=== PATIENT | female | born 1950 | race Caucasian/White ===

== ENCOUNTER 2024-07-29 15:30 | Inpatient (IN) | payer MEDICAID ==
[~2024-07-29] VITALS: Ht 160 cm; Wt 81.2 kg
[2024-07-29] VITALS (14 sets, daily range): BP systolic 74–106; BP diastolic 48–81; PULSE 105–112; RESP 15–23; TEMP 37.7; O2SAT 97–100
[~2024-07-29 15:30] MED LIST: ASPI-1406 MT; ATOR40TA70 PO; CHOL-36 PO; ESCI-7 PO; LOSA50TA41 PO; METF-907 PO
[2024-07-29] MEDS ORDERED: MECLIZINE 25MG TABLET PO ONE (15:45)
[2024-07-29 16:10] LABS: HEMATOCRIT. 33.9 % (36.0-48.0); HEMOGLOBIN. 11.1 g/dL (12.0-16.0); MEAN CORPUSCULAR HGB CONC 32.8 g/dL (31.0-37.0); MEAN CORPUSCULAR VOLUME 88.4 fL (81.0-99.0); MEAN PLATELET VOLUME 8.8 fl (7.4-10.4); PLATELET 254 x1000/uL (130-400); RED BLOOD CELL COUNT 3.83 mill/uL (4.2-5.4); RED CELL DISTRIBUTION WIDTH 16.6 % (11.6-14.6); WHITE BLOOD COUNT 7.8 x1000/uL (4.5-11.0)
[2024-07-29 16:11] LABS: DIFFERENTIAL COMMENT 1
[2024-07-29] MEDS: ONDANSETRON HCL 4MG/2ML INJ IV STA (16:19)
[2024-07-29 16:20] LABS: CHLORIDE 93 mEq/L (98-107); POTASSIUM 5.1 mEq/L (3.5-5.1); SODIUM 126 mEq/L (136-145)
[2024-07-29 16:21] LABS: CALCIUM 9.4 mg/dL (8.7-10.4); CARBON DIOXIDE 18 mEq/L (21-32)
[2024-07-29 16:26] LABS: TROPONIN I HIGH SENSITIVITY 13 ng/L (3.0-34); UREA NITROGEN BLOOD 33 mg/dL (9-23)
[2024-07-29] MEDS: SODIUM CHLORIDE 0.9% 1,000 ML IV ONE ×3 (16:27→18:48)
[2024-07-29 16:34] LABS: CREATININE 2.5 mg/dL (0.6-1.0); GLUCOSE 482 mg/dL (70-105)
[2024-07-29] MEDS: MECLIZINE 25MG TABLET PO NR (16:37)
[2024-07-29 17:01] LABS: ANISOCYTOSIS 1+; PLATELET ESTIMATE NORMAL
[2024-07-29] MEDS: INSULIN LISPRO 100 UNITS/ML SUBCUT STA (17:28)
[2024-07-29] MEDS: ACETAMINOPHEN 325MG TABLET PO STA (18:13)
[2024-07-29] MEDS: MORPHINE SULFATE 4 MG/ML INJ (FOR IV/IM USE) IV ONE (18:33)
[2024-07-29] MEDS: PIPERACILLIN/TAZO 3.375G/50ML 50 ML IV ONE (18:34)
[2024-07-29] MEDS: VANCOMYCIN 1G PREMIX 200 ML IV ONE (18:34)
[2024-07-29] MEDS: ACETAMINOPHEN 1000MG/100ML 100 ML IV ONE (19:13)
[2024-07-29 19:15] LABS: LACTIC ACID 7.9 mmol/L (0.4-2.0)
[2024-07-29 19:17] LABS: INFLUENZA TYPE A Presumptive Negative (Pres. Neg.)
[2024-07-29 19:18] LABS: INFLUENZA TYPE B Presumptive Negative (Pres. Neg.)
[2024-07-29] MEDS: NOREPINEPHRINE 8MG/250ML PMX 250 ML IV ONE (19:54)
[2024-07-29] MEDS ORDERED: CLONIDINE 0.1MG TABLET PO PRN (20:00)
[2024-07-29] MEDS ORDERED: DEXTROSE 50% WATER 50ML SYRINGE IV PRN (20:00)
[2024-07-29] MEDS ORDERED: GUAIFENESIN 200MG/10ML SUGAR FREE UDC PO PRN (20:00)
[2024-07-29] MEDS ORDERED: SODIUM CHLORIDE 0.9% 1,000 ML IV SCH (20:00)
[2024-07-29] MEDS ORDERED: INSULIN REGULAR (HUMULIN R) 1000UNITS/10ML VIAL IV NR (20:30)
[2024-07-29 20:53] LABS: CHLORIDE 103 mEq/L (98-107); POTASSIUM 4.5 mEq/L (3.5-5.1); SODIUM 130 mEq/L (136-145)
[2024-07-29 20:54] LABS: CALCIUM 8.6 mg/dL (8.7-10.4); CARBON DIOXIDE 16 mEq/L (21-32)
[2024-07-29 20:59] LABS: CREATININE 2.7 mg/dL (0.6-1.0); GLUCOSE 376 mg/dL (70-105)
[2024-07-29 21:00] LABS: UREA NITROGEN BLOOD 31 mg/dL (9-23)
[2024-07-29] MEDS: BLOOD SUGAR DIAGNOSTIC STRIP TEST SCH (21:00)
[2024-07-29 21:01] LABS: ALANINE AMINOTRANSFERASE 19 IU/L (10-49); ALBUMIN 3.4 g/dL (3.2-4.8); ASPARTATE AMINOTRANSFERASE 18 IU/L (<34)
[2024-07-29 21:02] LABS: BILIRUBIN DIRECT 0.2 mg/dL (<=3.0); BILIRUBIN TOTAL 0.4 mg/dL (0.1-1.0); PROTEIN TOTAL 6.1 g/dL (6.0-8.3)
[2024-07-29 21:17] LABS: INR 1.1; PROTHROMBIN TIME 11.6 sec (9.6-11.0)
[2024-07-29 21:46] LABS: PHOSPHORUS 0.9 mg/dL (2.5-4.9)
[2024-07-29] MEDS ORDERED: MAGNESIUM 2 G PREMIX 50 ML IV ONE (22:30)
[2024-07-29] MEDS ORDERED: POTASSIUM PHOSPHATE 10 MMOL in DEXT 5% WATER 246.6667 ML IV ONE (22:30)
[2024-07-29] MEDS: HYDROCORTISONE SOD SUCCINATE 100 MG/2 ML VIAL IV NR (23:18)
[2024-07-29] MEDS: SODIUM PHOSPHATE 30 MMOL in DEXT 5% WATER 500 ML IV SCH (23:22)
[2024-07-29] MEDS: AZITHROMYCIN 500MG/250ML 250 ML IV SCH (23:22)
[2024-07-29] MEDS: MAGNESIUM 4 G PREMIX 100 ML IV NR (23:22)
[2024-07-29] MEDS: INSULIN LISPRO 100 UNITS/ML SUBCUT SCH (23:31)
[2024-07-29] MEDS: INSULIN GLARGINE 100 UNITS/ML SUBCUT SCH (23:32)
[2024-07-29] MEDS: SODIUM CHLORIDE 0.45% 1,000 ML IV SCH (23:35)
[2024-07-29] MEDS: ACETAMINOPHEN 325MG TABLET PO PRN (23:35)
[2024-07-29 23:37] LABS: CLARITY URINE CLEAR (CLEAR); COLOR URINE YELLOW (YELLOW); GLUCOSE URINE 3+ (NEGATIVE); KETONES URINE NEGATIVE (NEGATIVE); LEUKOCYTE ESTERASE URINE 1+ (NEGATIVE); NITRITE URINE NEGATIVE (NEGATIVE); OCCULT BLOOD URINE NEGATIVE (NEGATIVE); PROTEIN URINE NEGATIVE (NEGATIVE); SPECIFIC GRAVITY URINE 1.017 (1.005-1.030); UROBILINOGEN URINE 0.2 E.U./dL (0.2-1.0)
[2024-07-30] VITALS (96 sets, daily range): BP systolic 31–141; BP diastolic 10–81; PULSE 72–120; RESP 0–44; TEMP 33.6–38; O2SAT 91–100
[2024-07-30 00:09] LABS: CREATINE KINASE 61 IU/L (34-145)
[2024-07-30 00:29] LABS: RBC URINE 0-2 /hpf (0-2); SQUAMOUS EPITHELIAL CELL URINE 1+ /lpf (RARE/1+)
[2024-07-30 00:30] LABS: BACTERIA URINE 2+
[2024-07-30 00:34] LABS: CHLORIDE 101 mEq/L (98-107); POTASSIUM 4.1 mEq/L (3.5-5.1); SODIUM 130 mEq/L (136-145)
[2024-07-30 00:35] LABS: CALCIUM 8.5 mg/dL (8.7-10.4); CARBON DIOXIDE 16 mEq/L (21-32)
[2024-07-30 00:40] LABS: CREATININE 3.1 mg/dL (0.6-1.0); UREA NITROGEN BLOOD 33 mg/dL (9-23)
[2024-07-30 01:12] LABS: BG BASE EXCESS -11.7 mmol/L (-2.0-3.0); BG CARBOXYHEMOGLOBIN 0.3 % (0.5-1.5); BG DEOXYHEMOGLOBIN 2.2 % (0.0-5.0); BG FRACTION INSPIRED OXYGEN 32; BG HCO3 ACT 13.3 mmol/L (21.0-28.0); BG METHEMOGLOBIN 0.1 % (0.5-1.5); BG OXYGEN SATURATION 97.8 % (94.0-98.0); BG OXYHEMOGLOBIN 97.4 % (94.0-98.0); BG PCO2 27.5 mmHg (32.0-45.0); BG PH 7.301 (7.350-7.450); BG PO2 92.9 mmHg (83.0-108.0); BG SAMPLE SITE LEFT RADIAL; BG TOTAL HEMOGLOBIN 11.6 g/dL (12.0-16.0); BG VENT MODE NASAL CANNULA
[2024-07-30 01:16] LABS: LACTIC ACID 4.8 mmol/L (0.4-2.0)
[2024-07-30 01:27] LABS: GLUCOSE 401 mg/dL (70-105)
[2024-07-30] MEDS: NOREPINEPHRINE 8MG/250ML PMX 250 ML IV PRN (02:23)
[2024-07-30 05:44] LABS: CHLORIDE 96 mEq/L (98-107); POTASSIUM 5.3 mEq/L (3.5-5.1); SODIUM 124 mEq/L (136-145)
[2024-07-30 05:45] LABS: CALCIUM 8.4 mg/dL (8.7-10.4); CARBON DIOXIDE 14 mEq/L (21-32)
[2024-07-30 05:47] LABS: HEMATOCRIT. 32.4 % (36.0-48.0); HEMOGLOBIN. 10.5 g/dL (12.0-16.0); MEAN CORPUSCULAR HEMOGLOBIN 29.1 pg (28.0-32.0); MEAN CORPUSCULAR HGB CONC 32.3 g/dL (31.0-37.0); MEAN CORPUSCULAR VOLUME 90.2 fL (81.0-99.0); MEAN PLATELET VOLUME 9.7 fl (7.4-10.4); PLATELET 228 x1000/uL (130-400); RED BLOOD CELL COUNT 3.59 mill/uL (4.2-5.4); RED CELL DISTRIBUTION WIDTH 16.7 % (11.6-14.6); WHITE BLOOD COUNT 19.1 x1000/uL (4.5-11.0)
[2024-07-30 05:50] LABS: CREATININE 3.2 mg/dL (0.6-1.0); TRIGLYCERIDE 404 mg/dL (0-150); UREA NITROGEN BLOOD 35 mg/dL (9-23)
[2024-07-30 05:51] LABS: ALBUMIN 3.4 g/dL (3.2-4.8); LACTIC ACID 7.7 mmol/L (0.4-2.0); LDL CHOLESTEROL 47 mg/dL (5-100); THYROID STIMULATING HORMONE 1.05 uIU/mL (0.55-4.78)
[2024-07-30 05:52] LABS: CHOLESTEROL 138 mg/dL (<200); CREATINE KINASE 172 IU/L (34-145); HDL CHOLESTEROL < 20 mg/dL (>65)
[2024-07-30 05:54] LABS: DIFFERENTIAL COMMENT 1
[2024-07-30 05:57] LABS: GLUCOSE 449 mg/dL (70-105)
[2024-07-30] MEDS: PANTOPRAZOLE 40MG DR TABLET PO SCH (06:06)
[2024-07-30] MEDS: PIPERACILLIN/TAZO 3.375G/50ML 50 ML IV SCH (06:07)
[2024-07-30] MEDS: SODIUM CHLORIDE 0.9% 1,000 ML IV SCH ×2 (06:34→11:55)
[2024-07-30 08:16] LABS: POTASSIUM 5.6 mEq/L (3.5-5.1)
[2024-07-30 08:17] LABS: CALCIUM 8.3 mg/dL (8.7-10.4)
[2024-07-30 08:22] LABS: CREATININE 3.4 mg/dL (0.6-1.0)
[2024-07-30] MEDS ORDERED: INSLIS SUBCUT (08:22)
[2024-07-30] MEDS ORDERED: INSU100V49 SQ (08:22)
[2024-07-30 08:46] LABS: HEPATITIS B SURFACE ANTIGEN NEGATIVE (Negative)
[2024-07-30 09:07] LABS: HEPATITIS C AB NON REACTIVE (Neg) (Negative)
[2024-07-30] MEDS: SODIUM BICARBONATE 8.4% 50MEQ/50ML SYR IV SCH ×2 (09:43→11:18)
[2024-07-30] MEDS: INSULIN GLARGINE 100 UNITS/ML SUBCUT SCH (09:49)
[2024-07-30 09:56] LABS: BG CARBOXYHEMOGLOBIN 0.8 % (0.5-1.5); BG DEOXYHEMOGLOBIN 3.2 % (0.0-5.0); BG FRACTION INSPIRED OXYGEN 32; BG HCO3 ACT 8.9 mmol/L (21.0-28.0); BG METHEMOGLOBIN 0.3 % (0.5-1.5); BG OXYGEN SATURATION 96.8 % (94.0-98.0); BG OXYHEMOGLOBIN 95.7 % (94.0-98.0); BG PCO2 22.2 mmHg (32.0-45.0); BG PH 7.221 (7.350-7.450); BG PO2 84.6 mmHg (83.0-108.0); BG SAMPLE SITE RIGHT BRACHIAL; BG TOTAL HEMOGLOBIN 11.5 g/dL (12.0-16.0); BG VENT MODE NASAL CANNULA
[2024-07-30] MEDS ORDERED: INSULIN GLARGINE 100 UNITS/ML SUBCUT SCH ×2 (10:00→22:00)
[2024-07-30] MEDS ORDERED: SODIUM POLYSTYRENE SULFONATE 15 G/60 ML BOT PO ONE (10:30)
[2024-07-30] MEDS: SODIUM BICARBONATE 100 MEQ in SODIUM CHLORIDE 0.45% 900 ML IV SCH (11:00)
[2024-07-30] MEDS ORDERED: LIDOCAINE HCL 1% 10 MG/ML 10ML VIAL ONE ×2 (11:11→13:22)
[2024-07-30] MEDS ORDERED: DEXTROSE 50% WATER 50ML SYRINGE IV PRN (11:15)
[2024-07-30] MEDS ORDERED: SODIUM PHOSPHATE 15 MMOL in SODIUM CHLORIDE 0.9% 245 ML IV PRN (11:15)
[2024-07-30] MEDS ORDERED: KCL 20MEQ/100ML PREMIX 100 ML IV PRN (11:15)
[2024-07-30] MEDS ORDERED: BLOOD SUGAR DIAGNOSTIC STRIP TEST PRN (11:15)
[2024-07-30] MEDS ORDERED: POTASSIUM CHLORIDE 40 MEQ in SODIUM CHLORIDE 0.9% 230 ML IV PRN (11:15)
[2024-07-30 11:17] LABS: ANISOCYTOSIS 1+; PLATELET ESTIMATE NORMAL
[2024-07-30] MEDS: VANCOMYCIN 750MG PMX (XELLIA) 150 ML IV SCH (11:18)
[2024-07-30] MEDS: SODIUM ZIRCONIUM CYCLOSILICATE 10GM/PACKET PO ONE (11:18)
[2024-07-30] MEDS: MAGNESIUM 4 G PREMIX 100 ML IV SCH (11:19)
[2024-07-30] MEDS ORDERED: LORAZEPAM 2MG/ML INJ IV PRN (11:45)
[2024-07-30] MEDS ORDERED: LORAZEPAM 1MG TABLET PO PRN (11:45)
[2024-07-30] MEDS ORDERED: DEXTROSE 50% WATER 50ML SYRINGE IV NR (12:15)
[2024-07-30] MEDS ORDERED: ALBUTEROL (0.083%) 2.5MG/3ML NEB HHN NR (12:15)
[2024-07-30] MEDS ORDERED: MIDAZOLAM HCL 2 MG/2 ML VIAL ONE (12:20)
[2024-07-30] MEDS: MIDAZOLAM HCL 2 MG/2 ML VIAL ONE (12:40)
[2024-07-30] MEDS: NOREPINEPHRINE 32 MG in DEXT 5% WATER 218 ML IV PRN (12:42)
[2024-07-30] MEDS: SODIUM PHOSPHATE 30 MMOL in DEXT 5% WATER 490 ML IV ONE (12:43)
[2024-07-30] MEDS: BLOOD SUGAR DIAGNOSTIC STRIP TEST SCH (12:45)
[2024-07-30] MEDS ORDERED: MIDAZOLAM HCL 2 MG/2 ML VIAL IV NR (12:45)
[2024-07-30] MEDS: SODIUM BICARBONATE 8.4% 50MEQ/50ML SYR IV NR (12:47)
[2024-07-30] MEDS: VASOPRESSIN 20 UNIT in SODIUM CHLORIDE 0.9% 99 ML IV PRN (13:00)
[2024-07-30] MEDS: MAGNESIUM 2 G PREMIX 50 ML IV PRN (13:51)
[2024-07-30] MEDS: INSULIN REGULAR 100U/100ML PMX 100 ML IV SCH (14:30)
[2024-07-30] MEDS: PROPOFOL 10MG/ML 100ML 100 ML IV PRN (15:50)
[2024-07-30 16:04] LABS: BG BASE EXCESS -11.7 mmol/L (-2.0-3.0); BG CARBOXYHEMOGLOBIN 0.4 % (0.5-1.5); BG DEOXYHEMOGLOBIN 0.3 % (0.0-5.0); BG FRACTION INSPIRED OXYGEN 100; BG METHEMOGLOBIN 0.1 % (0.5-1.5); BG OXYGEN SATURATION 99.7 % (94.0-98.0); BG OXYHEMOGLOBIN 99.2 % (94.0-98.0); BG PCO2 37.1 mmHg (32.0-45.0); BG PH 7.225 (7.350-7.450); BG PO2 195.6 mmHg (83.0-108.0); BG SAMPLE SITE ALINE; BG VENT MODE VENT - AC
[2024-07-30] MEDS: ENOXAPARIN 30MG/0.3ML SYR SUBCUT SCH (16:09)
[2024-07-30 16:26] LABS: CARBON DIOXIDE 17 mEq/L (21-32); CHLORIDE 98 mEq/L (98-107); SODIUM 131 mEq/L (136-145)
[2024-07-30 16:27] LABS: CALCIUM 7.9 mg/dL (8.7-10.4)
[2024-07-30 16:31] LABS: CREATININE 3.8 mg/dL (0.6-1.0)
[2024-07-30 16:32] LABS: UREA NITROGEN BLOOD 39 mg/dL (9-23)
[2024-07-30 16:34] LABS: PHOSPHORUS 6.3 mg/dL (2.5-4.9)
[2024-07-30 16:47] LABS: GLUCOSE 438 mg/dL (70-105)
[2024-07-30 16:59] LABS: HEPATITIS B SURFACE ANTIGEN NEGATIVE (Negative)
[2024-07-30 17:20] LABS: HEPATITIS A AB IGM NEGATIVE (Negative)
[2024-07-30 17:21] LABS: HEPATITIS B CORE AB IGM NEGATIVE (Negative); HEPATITIS C AB NON REACTIVE (Neg) (Negative)
[2024-07-30 17:53] LABS: IRON 13 ug/dL (50-170)
[2024-07-30 17:56] LABS: TOTAL IRON BINDING CAPACITY 602 ug/dl (250-425)
[2024-07-30] MEDS: INSULIN REGULAR (HUMULIN R) 1000UNITS/10ML VIAL IV NR (21:00)
[2024-07-30] MEDS: SODIUM ZIRCONIUM CYCLOSILICATE 10GM/PACKET PO NR (21:00)
[2024-07-30] MEDS: CALCIUM CHLORIDE 1GM/10ML SYR IV NR (21:00)
[2024-07-30 21:08] LABS: CARBON DIOXIDE 16 mEq/L (21-32); CHLORIDE 97 mEq/L (98-107); POTASSIUM 4.1 mEq/L (3.5-5.1); SODIUM 133 mEq/L (136-145)
[2024-07-30 21:08] LABS: BG BASE EXCESS -10.2 mmol/L (-2.0-3.0); BG CARBOXYHEMOGLOBIN 0.3 % (0.5-1.5); BG DEOXYHEMOGLOBIN 0.6 % (0.0-5.0); BG FRACTION INSPIRED OXYGEN 100; BG HCO3 ACT 14.5 mmol/L (21.0-28.0); BG OXYGEN SATURATION 99.4 % (94.0-98.0); BG OXYHEMOGLOBIN 99.1 % (94.0-98.0); BG PCO2 28.3 mmHg (32.0-45.0); BG PH 7.327 (7.350-7.450); BG PO2 157.1 mmHg (83.0-108.0); BG SAMPLE SITE ALINE; BG TOTAL HEMOGLOBIN 11.1 g/dL (12.0-16.0); BG VENT MODE VENT - AC
[2024-07-30 21:09] LABS: CALCIUM 7.4 mg/dL (8.7-10.4)
[2024-07-30 21:13] LABS: CREATININE 3.6 mg/dL (0.6-1.0); GLUCOSE 331 mg/dL (70-105)
[2024-07-30 21:14] LABS: UREA NITROGEN BLOOD 41 mg/dL (9-23)
[2024-07-30] MEDS: AZITHROMYCIN 500MG/250ML 250 ML IV SCH (21:19)
[2024-07-30] MEDS: ATORVASTATIN CALCIUM 40MG TABLET PO SCH (21:24)
[2024-07-30 21:49] LABS: PHOSPHORUS 8.3 mg/dL (2.5-4.9)
[2024-07-30 23:09] LABS: TOTAL VOLUME 24 HR 350 mL
[2024-07-30 23:16] LABS: SODIUM URINE (RAW) 36 mEq/L; SODIUM URINE 24 HR 12 mEq/24hr (40-220)
[2024-07-31] VITALS (97 sets, daily range): BP systolic 87–189; BP diastolic 36–70; PULSE 84–109; RESP 10–35; TEMP 36.114–37.7; O2SAT 92–100
[2024-07-31] MEDS: DEXT 5%/0.9% NACL 1,000 ML IV SCH ×2 (00:30→03:15)
[2024-07-31 03:57] LABS: CHLORIDE 102 mEq/L (98-107); SODIUM 136 mEq/L (136-145)
[2024-07-31 03:58] LABS: CALCIUM 7.2 mg/dL (8.7-10.4); CARBON DIOXIDE 23 mEq/L (21-32)
[2024-07-31 04:03] LABS: GLUCOSE 183 mg/dL (70-105); TRIGLYCERIDE 706 mg/dL (0-150); UREA NITROGEN BLOOD 23 mg/dL (9-23)
[2024-07-31 04:05] LABS: ALANINE AMINOTRANSFERASE 16 IU/L (10-49); ALBUMIN 2.7 g/dL (3.2-4.8); ASPARTATE AMINOTRANSFERASE 30 IU/L (<34); BILIRUBIN DIRECT 0.2 mg/dL (<=3.0); BILIRUBIN TOTAL 0.5 mg/dL (0.1-1.0); PHOSPHORUS 3.8 mg/dL (2.5-4.9)
[2024-07-31 04:08] LABS: T4 FREE 1.02 ng/dL (0.89-1.76)
[2024-07-31 04:19] LABS: CREATININE 2.2 mg/dL (0.6-1.0)
[2024-07-31 04:20] LABS: POTASSIUM 2.7 mEq/L (3.5-5.1)
[2024-07-31] MEDS ORDERED: KCL 20MEQ/100ML PREMIX 100 ML IV ONE ×2 (04:30)
[2024-07-31] MEDS: KCL 20MEQ/100ML PREMIX 100 ML IV SCH (05:15)
[2024-07-31 05:28] LABS: BASOPHILS % 0.4 % (0.0-2.0); DIFFERENTIAL COMMENT 0; EOSINOPHILS % 10.3 % (0.0-5.0); HEMATOCRIT. 27.7 % (36.0-48.0); HEMOGLOBIN. 9.6 g/dL (12.0-16.0); LYMPHOCYTES % 9.6 % (20.0-50.0); MEAN CORPUSCULAR HEMOGLOBIN 29.3 pg (28.0-32.0); MEAN CORPUSCULAR HGB CONC 34.7 g/dL (31.0-37.0); MEAN CORPUSCULAR VOLUME 84.6 fL (81.0-99.0); MONOCYTES % 4.3 % (2.0-8.0); NEUTROPHILS % 75.4 % (40.0-76.0); PLATELET 117 x1000/uL (130-400); RED BLOOD CELL COUNT 3.28 mill/uL (4.2-5.4); RED CELL DISTRIBUTION WIDTH 16.6 % (11.6-14.6); WHITE BLOOD COUNT 17.2 x1000/uL (4.5-11.0)
[2024-07-31 05:59] LABS: LACTIC ACID 4.3 mmol/L (0.4-2.0)
[2024-07-31 09:19] LABS: BG BASE EXCESS -1.8 mmol/L (-2.0-3.0); BG CARBOXYHEMOGLOBIN 0.4 % (0.5-1.5); BG DEOXYHEMOGLOBIN 2.1 % (0.0-5.0); BG FRACTION INSPIRED OXYGEN 40; BG HCO3 ACT 21.8 mmol/L (21.0-28.0); BG METHEMOGLOBIN 0.3 % (0.5-1.5); BG OXYGEN SATURATION 97.9 % (94.0-98.0); BG OXYHEMOGLOBIN 97.2 % (94.0-98.0); BG PCO2 32.7 mmHg (32.0-45.0); BG PH 7.441 (7.350-7.450); BG PO2 97.5 mmHg (83.0-108.0); BG SAMPLE SITE ALINE; BG TOTAL HEMOGLOBIN 10.9 g/dL (12.0-16.0); BG VENT MODE VENT - AC
[2024-07-31 10:42] LABS: HEMATOCRIT 26.8 % (36.0-48.0); HEMOGLOBIN 9.3 g/dL (12.0-16.0); MEAN CORPUSCULAR HEMOGLOBIN 29.6 pg (28.0-32.0); MEAN CORPUSCULAR HGB CONC 34.6 g/dL (31.0-37.0); MEAN CORPUSCULAR VOLUME 85.5 fL (81.0-99.0); PLATELET 101 x1000/uL (130-400); RED BLOOD CELL COUNT 3.13 mill/uL (4.2-5.4); RED CELL DISTRIBUTION WIDTH 16.8 % (11.6-14.6); WHITE BLOOD COUNT 15.1 x1000/uL (4.5-11.0)
[2024-07-31 10:49] LABS: CARBON DIOXIDE 23 mEq/L (21-32); CHLORIDE 101 mEq/L (98-107); POTASSIUM 3.8 mEq/L (3.5-5.1); SODIUM 135 mEq/L (136-145)
[2024-07-31 10:50] LABS: CALCIUM 6.9 mg/dL (8.7-10.4)
[2024-07-31 10:55] LABS: CREATININE 2.2 mg/dL (0.6-1.0); GLUCOSE 257 mg/dL (70-105); UREA NITROGEN BLOOD 23 mg/dL (9-23)
[2024-07-31 10:57] LABS: PHOSPHORUS 3.1 mg/dL (2.5-4.9)
[2024-07-31] MEDS: PHENYLEPHRINE 50MG/250ML PMX 250 ML IV PRN (11:31)
[2024-07-31 13:09] LABS: HEMATOCRIT 30.1 % (36.0-48.0); HEMOGLOBIN 10.5 g/dL (12.0-16.0); MEAN CORPUSCULAR HEMOGLOBIN 29.7 pg (28.0-32.0); MEAN CORPUSCULAR HGB CONC 34.8 g/dL (31.0-37.0); MEAN CORPUSCULAR VOLUME 85.3 fL (81.0-99.0); PLATELET 111 x1000/uL (130-400); RED BLOOD CELL COUNT 3.53 mill/uL (4.2-5.4); RED CELL DISTRIBUTION WIDTH 16.8 % (11.6-14.6); WHITE BLOOD COUNT 18.5 x1000/uL (4.5-11.0)
[2024-07-31 13:52] LABS: CHLORIDE 103 mEq/L (98-107); POTASSIUM 3.8 mEq/L (3.5-5.1); SODIUM 136 mEq/L (136-145)
[2024-07-31 13:53] LABS: CALCIUM 7.7 mg/dL (8.7-10.4); CARBON DIOXIDE 24 mEq/L (21-32)
[2024-07-31 13:58] LABS: GLUCOSE 227 mg/dL (70-105); UREA NITROGEN BLOOD 15 mg/dL (9-23)
[2024-07-31 14:00] LABS: PHOSPHORUS 1.6 mg/dL (2.5-4.9)
[2024-07-31 14:55] LABS: CREATININE 1.5 mg/dL (0.6-1.0)
[2024-07-31 17:13] LABS: HEMATOCRIT 30.5 % (36.0-48.0); HEMOGLOBIN 10.3 g/dL (12.0-16.0); MEAN CORPUSCULAR HEMOGLOBIN 29.1 pg (28.0-32.0); MEAN CORPUSCULAR HGB CONC 33.8 g/dL (31.0-37.0); MEAN CORPUSCULAR VOLUME 86.3 fL (81.0-99.0); RED BLOOD CELL COUNT 3.54 mill/uL (4.2-5.4); RED CELL DISTRIBUTION WIDTH 16.9 % (11.6-14.6); WHITE BLOOD COUNT 21.1 x1000/uL (4.5-11.0)
[2024-07-31 17:27] LABS: PHOSPHORUS 2.5 mg/dL (2.5-4.9)
[2024-07-31 17:30] LABS: PLATELET 99 x1000/uL (130-400)
[2024-07-31 21:50] LABS: HEMATOCRIT 26.3 % (36.0-48.0); HEMOGLOBIN 8.9 g/dL (12.0-16.0); MEAN CORPUSCULAR HEMOGLOBIN 29.1 pg (28.0-32.0); MEAN CORPUSCULAR HGB CONC 34.1 g/dL (31.0-37.0); MEAN CORPUSCULAR VOLUME 85.5 fL (81.0-99.0); PLATELET 90 x1000/uL (130-400); RED BLOOD CELL COUNT 3.07 mill/uL (4.2-5.4); RED CELL DISTRIBUTION WIDTH 16.9 % (11.6-14.6); WHITE BLOOD COUNT 18.4 x1000/uL (4.5-11.0)
[2024-07-31 22:13] LABS: CHLORIDE 107 mEq/L (98-107); POTASSIUM 3.8 mEq/L (3.5-5.1); SODIUM 136 mEq/L (136-145)
[2024-07-31 22:14] LABS: CARBON DIOXIDE 22 mEq/L (21-32)
[2024-07-31 22:15] LABS: CALCIUM 6.8 mg/dL (8.7-10.4)
[2024-07-31 22:19] LABS: CREATININE 1.8 mg/dL (0.6-1.0); GLUCOSE 303 mg/dL (70-105)
[2024-07-31 22:20] LABS: UREA NITROGEN BLOOD 19 mg/dL (9-23)
[2024-07-31 22:22] LABS: PHOSPHORUS 1.9 mg/dL (2.5-4.9)
[2024-07-31] MEDS: MIDAZOLAM HCL 2 MG/2 ML VIAL IV NR (23:32)
[2024-07-31] MEDS: FENTANYL 2500MCG/250ML PMX 250 ML IV PRN (23:39)
[2024-07-31] MEDS: INSULIN GLARGINE 100 UNITS/ML SUBCUT NR (23:50)
[2024-07-31] MEDS: INSULIN LISPRO 100 UNITS/ML SUBCUT SCH (23:51)
[2024-08-01] VITALS (98 sets, daily range): BP systolic 91–136; BP diastolic 54–77; PULSE 83–103; RESP 0–27; TEMP 36.7–37.6; O2SAT 98–100
[2024-08-01 03:40] LABS: POTASSIUM 3.6 mEq/L (3.5-5.1)
[2024-08-01 03:41] LABS: CALCIUM 6.8 mg/dL (8.7-10.4)
[2024-08-01 03:45] LABS: CREATININE 1.9 mg/dL (0.6-1.0)
[2024-08-01 04:04] LABS: BASOPHILS % 0.3 % (0.0-2.0); DIFFERENTIAL COMMENT 0; EOSINOPHILS % 1.6 % (0.0-5.0); HEMATOCRIT. 25.9 % (36.0-48.0); LYMPHOCYTES % 9.2 % (20.0-50.0); MEAN CORPUSCULAR HEMOGLOBIN 29.4 pg (28.0-32.0); MEAN CORPUSCULAR HGB CONC 34.6 g/dL (31.0-37.0); MEAN CORPUSCULAR VOLUME 84.9 fL (81.0-99.0); MEAN PLATELET VOLUME 9.4 fl (7.4-10.4); MONOCYTES % 3.7 % (2.0-8.0); NEUTROPHILS % 85.2 % (40.0-76.0); PLATELET 85 x1000/uL (130-400); RED BLOOD CELL COUNT 3.05 mill/uL (4.2-5.4); RED CELL DISTRIBUTION WIDTH 16.8 % (11.6-14.6); WHITE BLOOD COUNT 16.6 x1000/uL (4.5-11.0)
[2024-08-01] MEDS: SODIUM CHLORIDE 0.9% 1,000 ML IV SCH (04:54)
[2024-08-01] MEDS: PROPOFOL 10MG/ML 100ML 100 ML IV PRN ×2 (05:51→22:41)
[2024-08-01 06:08] LABS: TRIGLYCERIDE 874 mg/dL (0-150)
[2024-08-01 06:10] LABS: PHOSPHORUS 1.9 mg/dL (2.5-4.9)
[2024-08-01 07:45] LABS: BG BASE EXCESS -3.8 mmol/L (-2.0-3.0); BG CARBOXYHEMOGLOBIN 0.7 % (0.5-1.5); BG DEOXYHEMOGLOBIN 1.4 % (0.0-5.0); BG FRACTION INSPIRED OXYGEN 40; BG HCO3 ACT 19.3 mmol/L (21.0-28.0); BG METHEMOGLOBIN 0.1 % (0.5-1.5); BG OXYGEN SATURATION 98.6 % (94.0-98.0); BG OXYHEMOGLOBIN 97.8 % (94.0-98.0); BG PCO2 27.8 mmHg (32.0-45.0); BG PH 7.459 (7.350-7.450); BG PO2 112.6 mmHg (83.0-108.0); BG SAMPLE SITE ALINE; BG TOTAL HEMOGLOBIN 8.5 g/dL (12.0-16.0); BG VENT MODE VENT - AC
[2024-08-01] MEDS: IPRATROPIUM/ALBUTEROL 0.5-3(2.5)MG/3ML NEB HHN PRN (08:53)
[2024-08-01] MEDS: SODIUM PHOSPHATE 15 MMOL in DEXT 5% WATER 245 ML IV NR (09:54)
[2024-08-01] MEDS: INSULIN GLARGINE 100 UNITS/ML SUBCUT SCH (09:57)
[2024-08-01 10:46] LABS: AMYLASE 41 IU/L (30-118)
[2024-08-01] MEDS: BLOOD SUGAR DIAGNOSTIC STRIP TEST SCH (11:51)
[2024-08-01] MEDS: INSULIN LISPRO 100 UNITS/ML SUBCUT SCH ×2 (12:00→12:01)
[2024-08-01 12:35] LABS: POTASSIUM 3.9 mEq/L (3.5-5.1)
[2024-08-01 12:41] LABS: CREATININE 1.8 mg/dL (0.6-1.0)
[2024-08-01] MEDS: CEFTRIAXONE 1GM/50ML 50ML IV SCH (16:15)
[2024-08-01 18:52] LABS: POTASSIUM 4.2 mEq/L (3.5-5.1)
[2024-08-01 18:53] LABS: CALCIUM 7.2 mg/dL (8.7-10.4)
[2024-08-01 18:58] LABS: CREATININE 1.9 mg/dL (0.6-1.0)
[2024-08-01] MEDS: IPRATROPIUM/ALBUTEROL 0.5-3(2.5)MG/3ML NEB HHN SCH (20:33)
[2024-08-02] VITALS (102 sets, daily range): BP systolic 94–179; BP diastolic 56–96; PULSE 80–94; RESP 15–34; TEMP 36.8–37.4; O2SAT 97–100
[2024-08-02 06:05] LABS: HEMATOCRIT. 25.1 % (36.0-48.0); HEMOGLOBIN. 8.7 g/dL (12.0-16.0); MEAN CORPUSCULAR HEMOGLOBIN 29.5 pg (28.0-32.0); MEAN CORPUSCULAR HGB CONC 34.7 g/dL (31.0-37.0); MEAN CORPUSCULAR VOLUME 85.1 fL (81.0-99.0); MEAN PLATELET VOLUME 9.4 fl (7.4-10.4); PLATELET 85 x1000/uL (130-400); RED BLOOD CELL COUNT 2.95 mill/uL (4.2-5.4); RED CELL DISTRIBUTION WIDTH 16.9 % (11.6-14.6); WHITE BLOOD COUNT 12.7 x1000/uL (4.5-11.0)
[2024-08-02 06:07] LABS: CALCIUM 6.9 mg/dL (8.7-10.4); CARBON DIOXIDE 21 mEq/L (21-32); CHLORIDE 108 mEq/L (98-107); POTASSIUM 4.1 mEq/L (3.5-5.1); SODIUM 137 mEq/L (136-145)
[2024-08-02 06:12] LABS: CREATININE 1.8 mg/dL (0.6-1.0)
[2024-08-02 06:13] LABS: GLUCOSE 227 mg/dL (70-105); TRIGLYCERIDE 697 mg/dL (0-150); UREA NITROGEN BLOOD 21 mg/dL (9-23)
[2024-08-02 06:15] LABS: PHOSPHORUS 3.3 mg/dL (2.5-4.9)
[2024-08-02 06:31] LABS: DIFFERENTIAL COMMENT 1
[2024-08-02 09:04] LABS: ANISOCYTOSIS 1+; PLATELET ESTIMATE SLIGHTLY DECREASED
[2024-08-02 09:38] LABS: BG CARBOXYHEMOGLOBIN 1.4 % (0.5-1.5); BG DEOXYHEMOGLOBIN 2.1 % (0.0-5.0); BG FRACTION INSPIRED OXYGEN 40; BG HCO3 ACT 19.7 mmol/L (21.0-28.0); BG OXYGEN SATURATION 97.9 % (94.0-98.0); BG OXYHEMOGLOBIN 96.5 % (94.0-98.0); BG PCO2 35.5 mmHg (32.0-45.0); BG PH 7.362 (7.350-7.450); BG PO2 94.7 mmHg (83.0-108.0); BG SAMPLE SITE ALINE; BG TOTAL HEMOGLOBIN 11.7 g/dL (12.0-16.0); BG VENT MODE VENT - AC
[2024-08-02] MEDS: PROPOFOL 10MG/ML 100ML 100 ML IV PRN (10:13)
[2024-08-02] MEDS ORDERED: DEXTROSE 50% WATER 50ML SYRINGE IV PRN ×2 (10:45→12:45)
[2024-08-02] MEDS: BLOOD SUGAR DIAGNOSTIC STRIP TEST SCH ×2 (10:45→17:46)
[2024-08-02] MEDS: INSULIN LISPRO 100 UNITS/ML SUBCUT SCH ×2 (12:33→13:00)
[2024-08-02] MEDS: ONDANSETRON HCL 4MG/2ML INJ IV PRN (16:23)
[2024-08-02] MEDS: CEFTRIAXONE 2GM/50ML 50 ML IV SCH (16:37)
[2024-08-02] MEDS: MIDAZOLAM 100MG/100ML PMX 100 ML IV PRN (22:02)
[2024-08-03] VITALS (102 sets, daily range): BP systolic 103–166; BP diastolic 61–151; PULSE 70–86; RESP 10–30; TEMP 36.8–37.9; O2SAT 98–100
[2024-08-03 05:36] LABS: CHLORIDE 110 mEq/L (98-107); POTASSIUM 4.3 mEq/L (3.5-5.1); SODIUM 141 mEq/L (136-145)
[2024-08-03 05:37] LABS: CALCIUM 7.5 mg/dL (8.7-10.4); CARBON DIOXIDE 23 mEq/L (21-32)
[2024-08-03 05:39] LABS: BASOPHILS % 0.6 % (0.0-2.0); DIFFERENTIAL COMMENT 0; EOSINOPHILS % 2.5 % (0.0-5.0); HEMATOCRIT. 24.1 % (36.0-48.0); HEMOGLOBIN. 8.1 g/dL (12.0-16.0); LYMPHOCYTES % 10.5 % (20.0-50.0); MEAN CORPUSCULAR HEMOGLOBIN 28.5 pg (28.0-32.0); MEAN CORPUSCULAR HGB CONC 33.5 g/dL (31.0-37.0); MEAN PLATELET VOLUME 9.9 fl (7.4-10.4); MONOCYTES % 8.1 % (2.0-8.0); NEUTROPHILS % 78.3 % (40.0-76.0); PLATELET 93 x1000/uL (130-400); RED BLOOD CELL COUNT 2.83 mill/uL (4.2-5.4); RED CELL DISTRIBUTION WIDTH 17.7 % (11.6-14.6); WHITE BLOOD COUNT 12.2 x1000/uL (4.5-11.0)
[2024-08-03 05:42] LABS: CREATININE 1.9 mg/dL (0.6-1.0); GLUCOSE 190 mg/dL (70-105); TRIGLYCERIDE 250 mg/dL (0-150); UREA NITROGEN BLOOD 23 mg/dL (9-23)
[2024-08-03 05:44] LABS: PHOSPHORUS 3.2 mg/dL (2.5-4.9)
[2024-08-03 09:05] LABS: BG CARBOXYHEMOGLOBIN 0.3 % (0.5-1.5); BG DEOXYHEMOGLOBIN 0.6 % (0.0-5.0); BG FRACTION INSPIRED OXYGEN 40; BG HCO3 ACT 20.4 mmol/L (21.0-28.0); BG METHEMOGLOBIN 0.1 % (0.5-1.5); BG OXYGEN SATURATION 99.4 % (94.0-98.0); BG PCO2 34.3 mmHg (32.0-45.0); BG PH 7.393 (7.350-7.450); BG PO2 145.2 mmHg (83.0-108.0); BG SAMPLE SITE ALINE; BG TOTAL HEMOGLOBIN 8.4 g/dL (12.0-16.0); BG TOTAL RESPIRATORY RATE 17 b/min; BG VENT MODE VENT - AC
[2024-08-03] MEDS ORDERED: FENTANYL CITRATE 2,500 MCG in SODIUM CHLORIDE 0.9% 200 ML IV PRN (14:30)
[2024-08-04] VITALS (92 sets, daily range): PULSE 62–97; RESP 0–34; TEMP 36.3–37.6; O2SAT 96–100
[2024-08-04] MEDS: INSULIN LISPRO 100 UNITS/ML SUBCUT SCH (00:36)
[2024-08-04 05:51] LABS: BASOPHILS % 0.2 % (0.0-2.0); EOSINOPHILS % 3.1 % (0.0-5.0); HEMATOCRIT. 22.7 % (36.0-48.0); HEMOGLOBIN. 7.6 g/dL (12.0-16.0); LYMPHOCYTES % 10.4 % (20.0-50.0); MEAN CORPUSCULAR HEMOGLOBIN 28.4 pg (28.0-32.0); MEAN CORPUSCULAR HGB CONC 33.4 g/dL (31.0-37.0); MEAN CORPUSCULAR VOLUME 85.1 fL (81.0-99.0); MEAN PLATELET VOLUME 9.8 fl (7.4-10.4); MONOCYTES % 6.8 % (2.0-8.0); NEUTROPHILS % 79.5 % (40.0-76.0); PLATELET 107 x1000/uL (130-400); RED BLOOD CELL COUNT 2.67 mill/uL (4.2-5.4); RED CELL DISTRIBUTION WIDTH 17.5 % (11.6-14.6); WHITE BLOOD COUNT 11.9 x1000/uL (4.5-11.0)
[2024-08-04 06:16] LABS: CARBON DIOXIDE 22 mEq/L (21-32); CHLORIDE 113 mEq/L (98-107); POTASSIUM 3.9 mEq/L (3.5-5.1); SODIUM 143 mEq/L (136-145)
[2024-08-04 06:17] LABS: CALCIUM 7.3 mg/dL (8.7-10.4)
[2024-08-04 06:21] LABS: CREATININE 1.6 mg/dL (0.6-1.0)
[2024-08-04 06:22] LABS: GLUCOSE 214 mg/dL (70-105); UREA NITROGEN BLOOD 24 mg/dL (9-23)
[2024-08-04 06:24] LABS: PHOSPHORUS 3.2 mg/dL (2.5-4.9)
[2024-08-04] MEDS: DEXMEDETOMIDINE 400 MCG/100 ML 100 ML IV PRN (11:30)
[2024-08-04] MEDS: AZITHROMYCIN 500MG/250ML 250 ML IV SCH (12:06)
[2024-08-04] MEDS: MAGNESIUM 2 G PREMIX 50 ML IV NR (14:57)
[2024-08-04] MEDS ORDERED: INSULIN LISPRO (HIGH DOSE) 100 UNITS/ML SUBCUT SCH (21:30)
[2024-08-05] VITALS (87 sets, daily range): PULSE 61–83; RESP 0–30; TEMP 36.3–36.9; O2SAT 0–100
[2024-08-05 06:12] LABS: BASOPHILS % 0.5 % (0.0-2.0); EOSINOPHILS % 2.7 % (0.0-5.0); HEMATOCRIT. 23.5 % (36.0-48.0); HEMOGLOBIN. 7.9 g/dL (12.0-16.0); LYMPHOCYTES % 12.4 % (20.0-50.0); MEAN CORPUSCULAR HEMOGLOBIN 29.3 pg (28.0-32.0); MEAN CORPUSCULAR HGB CONC 33.8 g/dL (31.0-37.0); MEAN CORPUSCULAR VOLUME 86.5 fL (81.0-99.0); MEAN PLATELET VOLUME 9.9 fl (7.4-10.4); MONOCYTES % 5.6 % (2.0-8.0); NEUTROPHILS % 78.8 % (40.0-76.0); PLATELET 123 x1000/uL (130-400); RED BLOOD CELL COUNT 2.71 mill/uL (4.2-5.4); RED CELL DISTRIBUTION WIDTH 17.8 % (11.6-14.6); WHITE BLOOD COUNT 10.4 x1000/uL (4.5-11.0)
[2024-08-05 06:25] LABS: CHLORIDE 110 mEq/L (98-107); POTASSIUM 4.2 mEq/L (3.5-5.1); SODIUM 143 mEq/L (136-145)
[2024-08-05 06:26] LABS: CALCIUM 8.3 mg/dL (8.7-10.4); CARBON DIOXIDE 25 mEq/L (21-32)
[2024-08-05 06:31] LABS: CREATININE 1.7 mg/dL (0.6-1.0); GLUCOSE 128 mg/dL (70-105); UREA NITROGEN BLOOD 25 mg/dL (9-23)
[2024-08-05 06:33] LABS: ALANINE AMINOTRANSFERASE 12 IU/L (10-49); ALBUMIN 3.2 g/dL (3.2-4.8); ASPARTATE AMINOTRANSFERASE 8 IU/L (<34); BILIRUBIN DIRECT 0.1 mg/dL (<=3.0); BILIRUBIN TOTAL 0.3 mg/dL (0.1-1.0); PHOSPHORUS 3.9 mg/dL (2.5-4.9)
[2024-08-05 06:34] LABS: PROTEIN TOTAL 5.5 g/dL (6.0-8.3)
[2024-08-05 09:26] LABS: BG CARBOXYHEMOGLOBIN 0.5 % (0.5-1.5); BG DEOXYHEMOGLOBIN 1.8 % (0.0-5.0); BG FRACTION INSPIRED OXYGEN 40; BG HCO3 ACT 22.1 mmol/L (21.0-28.0); BG METHEMOGLOBIN 0.3 % (0.5-1.5); BG OXYGEN SATURATION 98.2 % (94.0-98.0); BG OXYHEMOGLOBIN 97.4 % (94.0-98.0); BG PCO2 30.1 mmHg (32.0-45.0); BG PH 7.483 (7.350-7.450); BG SAMPLE SITE ALINE; BG TOTAL HEMOGLOBIN 7.8 g/dL (12.0-16.0); BG VENT MODE VENT - AC
[2024-08-05 12:01] LABS: BG CARBOXYHEMOGLOBIN 0.3 % (0.5-1.5); BG DEOXYHEMOGLOBIN 1.8 % (0.0-5.0); BG FRACTION INSPIRED OXYGEN 40; BG HCO3 ACT 22.9 mmol/L (21.0-28.0); BG METHEMOGLOBIN 0.3 % (0.5-1.5); BG OXYGEN SATURATION 98.2 % (94.0-98.0); BG OXYHEMOGLOBIN 97.6 % (94.0-98.0); BG PCO2 30.8 mmHg (32.0-45.0); BG PO2 106.7 mmHg (83.0-108.0); BG SAMPLE SITE ALINE; BG TOTAL HEMOGLOBIN 9.1 g/dL (12.0-16.0); BG VENT MODE VENT - CPAP
[2024-08-05] MEDS: FERROUS SULFATE 325MG TABLET PO SCH (12:07)
[2024-08-05] MEDS: DIPHENHYDRAMINE 50MG/ML VIAL IV NR (14:21)
[2024-08-05] MEDS: DOCUSATE SODIUM 100MG CAPSULE PO PRN (21:50)
[2024-08-06] VITALS (57 sets, daily range): BP systolic 92–148; BP diastolic 36–103; PULSE 69–84; RESP 6–33; TEMP 36.3–36.8; O2SAT 94–100
[2024-08-06 05:59] LABS: CHLORIDE 110 mEq/L (98-107); POTASSIUM 3.5 mEq/L (3.5-5.1); SODIUM 145 mEq/L (136-145)
[2024-08-06 06:00] LABS: CARBON DIOXIDE 24 mEq/L (21-32)
[2024-08-06 06:03] LABS: BASOPHILS % 0.4 % (0.0-2.0); HEMATOCRIT. 21.7 % (36.0-48.0); HEMOGLOBIN. 7.2 g/dL (12.0-16.0); LYMPHOCYTES % 10.2 % (20.0-50.0); MEAN CORPUSCULAR HEMOGLOBIN 28.1 pg (28.0-32.0); MEAN CORPUSCULAR HGB CONC 33.1 g/dL (31.0-37.0); MEAN PLATELET VOLUME 9.8 fl (7.4-10.4); MONOCYTES % 5.1 % (2.0-8.0); NEUTROPHILS % 82.3 % (40.0-76.0); PLATELET 163 x1000/uL (130-400); RED BLOOD CELL COUNT 2.55 mill/uL (4.2-5.4); RED CELL DISTRIBUTION WIDTH 17.7 % (11.6-14.6); WHITE BLOOD COUNT 11.8 x1000/uL (4.5-11.0)
[2024-08-06 06:05] LABS: CREATININE 1.5 mg/dL (0.6-1.0); GLUCOSE 75 mg/dL (70-105)
[2024-08-06 06:06] LABS: UREA NITROGEN BLOOD 25 mg/dL (9-23)
[2024-08-06 06:08] LABS: PHOSPHORUS 4.1 mg/dL (2.5-4.9)
[2024-08-06] MEDS: TRAMADOL 50MG TABLET PO NR (22:23)
[2024-08-07 04:00] VITALS: BP 124/61; PULSE 73; RESP 18; TEMP 36.4; O2SAT 100
[2024-08-07 08:00] VITALS: BP 116/54; PULSE 78; RESP 18; TEMP 37; O2SAT 98
[2024-08-07 09:09] LABS: BASOPHILS % 0.4 % (0.0-2.0); EOSINOPHILS % 2.2 % (0.0-5.0); HEMATOCRIT. 24.2 % (36.0-48.0); HEMOGLOBIN. 8.1 g/dL (12.0-16.0); MEAN CORPUSCULAR HEMOGLOBIN 29.3 pg (28.0-32.0); MEAN CORPUSCULAR HGB CONC 33.6 g/dL (31.0-37.0); MEAN CORPUSCULAR VOLUME 87.4 fL (81.0-99.0); MEAN PLATELET VOLUME 9.9 fl (7.4-10.4); MONOCYTES % 4.7 % (2.0-8.0); NEUTROPHILS % 82.7 % (40.0-76.0); PLATELET 202 x1000/uL (130-400); RED BLOOD CELL COUNT 2.77 mill/uL (4.2-5.4); RED CELL DISTRIBUTION WIDTH 18.1 % (11.6-14.6); WHITE BLOOD COUNT 9.8 x1000/uL (4.5-11.0)
[2024-08-07 09:27] LABS: CHLORIDE 108 mEq/L (98-107); POTASSIUM 4.1 mEq/L (3.5-5.1); SODIUM 142 mEq/L (136-145)
[2024-08-07 09:28] LABS: CARBON DIOXIDE 25 mEq/L (21-32)
[2024-08-07 09:29] LABS: CALCIUM 8.1 mg/dL (8.7-10.4)
[2024-08-07 09:33] LABS: CREATININE 1.6 mg/dL (0.6-1.0); GLUCOSE 122 mg/dL (70-105)
[2024-08-07 09:34] LABS: UREA NITROGEN BLOOD 25 mg/dL (9-23)
[2024-08-07 09:36] LABS: PHOSPHORUS 4.1 mg/dL (2.5-4.9)
[2024-08-07] MEDS: INSULIN GLARGINE 100 UNITS/ML SUBCUT SCH (10:00)
[2024-08-07 12:00] VITALS: BP 111/54; PULSE 78; RESP 17; TEMP 38.3; O2SAT 96
[2024-08-07 16:00] VITALS: BP 117/57; PULSE 77; RESP 17; TEMP 36.6; O2SAT 96
[2024-08-07 20:00] VITALS: BP 131/61; PULSE 79; RESP 19; TEMP 36.4; O2SAT 97
[2024-08-07] MEDS ORDERED: MIRA50TA PO (20:52)
[2024-08-07] MEDS ORDERED: LOSA25TA26 PO (20:52)
[2024-08-07] MEDS ORDERED: GABA-1180 PO (20:52)
[2024-08-07] MEDS ORDERED: NYST15CR31 TP (20:52)
[2024-08-07] MEDS ORDERED: PREMV VG (20:52)
[2024-08-07] MEDS ORDERED: PSYL284P7 PO (20:52)
[2024-08-07] MEDS: GABAPENTIN 300MG CAPSULE PO SCH (21:01)
[2024-08-07] MEDS: BLOOD SUGAR DIAGNOSTIC STRIP TEST SCH (23:00)
[2024-08-07] MEDS: INSULIN LISPRO 100 UNITS/ML SUBCUT SCH (23:00)
[2024-08-07 23:58] VITALS: BP 96/60; PULSE 74; RESP 19; TEMP 36.3; O2SAT 96
[2024-08-08 03:57] VITALS: BP 125/51; PULSE 84; RESP 20; TEMP 36.4; O2SAT 97
[2024-08-08 07:23] LABS: BASOPHILS % 0.7 % (0.0-2.0); EOSINOPHILS % 1.4 % (0.0-5.0); HEMATOCRIT. 25.1 % (36.0-48.0); HEMOGLOBIN. 8.2 g/dL (12.0-16.0); LYMPHOCYTES % 9.3 % (20.0-50.0); MEAN CORPUSCULAR HEMOGLOBIN 28.6 pg (28.0-32.0); MEAN CORPUSCULAR HGB CONC 32.8 g/dL (31.0-37.0); MEAN CORPUSCULAR VOLUME 87.2 fL (81.0-99.0); MEAN PLATELET VOLUME 9.9 fl (7.4-10.4); MONOCYTES % 3.7 % (2.0-8.0); NEUTROPHILS % 84.9 % (40.0-76.0); PLATELET 259 x1000/uL (130-400); RED BLOOD CELL COUNT 2.88 mill/uL (4.2-5.4); RED CELL DISTRIBUTION WIDTH 18.1 % (11.6-14.6)
[2024-08-08 07:41] LABS: CARBON DIOXIDE 25 mEq/L (21-32); CHLORIDE 109 mEq/L (98-107); POTASSIUM 4.3 mEq/L (3.5-5.1); SODIUM 144 mEq/L (136-145)
[2024-08-08 07:43] LABS: CALCIUM 8.4 mg/dL (8.7-10.4)
[2024-08-08 07:45] LABS: CREATININE 1.7 mg/dL (0.6-1.0)
[2024-08-08 07:47] LABS: GLUCOSE 123 mg/dL (70-105); UREA NITROGEN BLOOD 25 mg/dL (9-23)
[2024-08-08 07:49] LABS: PHOSPHORUS 3.2 mg/dL (2.5-4.9)
[2024-08-08 08:00] VITALS: BP 124/61; PULSE 80; RESP 19; TEMP 36.4; O2SAT 95
[2024-08-08] MEDS: INSULIN GLARGINE 100 UNITS/ML SUBCUT SCH (10:56)
[2024-08-08 12:00] VITALS: BP 110/81; PULSE 82; RESP 19; TEMP 36.7; O2SAT 97
[2024-08-08 16:00] VITALS: BP 122/71; PULSE 80; RESP 18; RESP 19; TEMP 36.5; O2SAT 97
[2024-08-08 20:00] VITALS: BP 146/75; PULSE 80; RESP 18; TEMP 36.2; O2SAT 98
[2024-08-09] VITALS: BP 132/60; PULSE 82; RESP 19; TEMP 36.4; O2SAT 95
[2024-08-09 04:00] VITALS: BP 136/61; PULSE 83; RESP 20; TEMP 36.3; O2SAT 95
[2024-08-09] MEDS ORDERED: INSULIN LISPRO 100 UNITS/ML SUBCUT SCH (07:40)
[2024-08-09 07:58] VITALS: BP 132/63; PULSE 76; RESP 20; TEMP 36.4; O2SAT 97
[2024-08-09] MEDS: INSULIN LISPRO (LOW DOSE) 100 UNITS/ML SUBCUT SCH (08:10)
[2024-08-09 08:59] LABS: BASOPHILS % 0.5 % (0.0-2.0); EOSINOPHILS % 1.5 % (0.0-5.0); HEMATOCRIT. 24.5 % (36.0-48.0); HEMOGLOBIN. 8.1 g/dL (12.0-16.0); LYMPHOCYTES % 10.6 % (20.0-50.0); MEAN CORPUSCULAR HEMOGLOBIN 28.9 pg (28.0-32.0); MEAN CORPUSCULAR VOLUME 87.8 fL (81.0-99.0); MEAN PLATELET VOLUME 9.2 fl (7.4-10.4); MONOCYTES % 3.8 % (2.0-8.0); NEUTROPHILS % 83.6 % (40.0-76.0); PLATELET 311 x1000/uL (130-400); RED BLOOD CELL COUNT 2.79 mill/uL (4.2-5.4); RED CELL DISTRIBUTION WIDTH 17.7 % (11.6-14.6)
[2024-08-09 09:07] LABS: CARBON DIOXIDE 25 mEq/L (21-32); CHLORIDE 110 mEq/L (98-107); POTASSIUM 3.9 mEq/L (3.5-5.1); SODIUM 146 mEq/L (136-145)
[2024-08-09 09:08] LABS: CALCIUM 8.7 mg/dL (8.7-10.4)
[2024-08-09 09:13] LABS: CREATININE 1.6 mg/dL (0.6-1.0); GLUCOSE 87 mg/dL (70-105); UREA NITROGEN BLOOD 23 mg/dL (9-23)
[2024-08-09 09:15] LABS: PHOSPHORUS 3.2 mg/dL (2.5-4.9)
[2024-08-09] MEDS: FERROUS SULFATE 325MG TABLET PO SCH (09:20)
[2024-08-09 11:53] VITALS: BP 135/59; PULSE 83; RESP 18; TEMP 36.7; O2SAT 98
[2024-08-09 16:19] VITALS: BP 143/72; PULSE 79; RESP 20; TEMP 36.6; O2SAT 98
[2024-08-09 20:00] VITALS: BP 142/74; PULSE 77; RESP 18; TEMP 36.2; O2SAT 98
[2024-08-10] VITALS: BP 140/70; PULSE 78; RESP 19; TEMP 36.1; O2SAT 99
[2024-08-10 04:00] VITALS: BP 140/65; PULSE 90; RESP 20; TEMP 36.9; O2SAT 99
[2024-08-10 06:09] LABS: BASOPHILS % 0.8 % (0.0-2.0); EOSINOPHILS % 1.8 % (0.0-5.0); HEMOGLOBIN. 7.4 g/dL (12.0-16.0); MEAN CORPUSCULAR HEMOGLOBIN 28.3 pg (28.0-32.0); MEAN CORPUSCULAR HGB CONC 32.3 g/dL (31.0-37.0); MEAN CORPUSCULAR VOLUME 87.8 fL (81.0-99.0); MEAN PLATELET VOLUME 9.4 fl (7.4-10.4); MONOCYTES % 4.5 % (2.0-8.0); NEUTROPHILS % 77.9 % (40.0-76.0); PLATELET 313 x1000/uL (130-400); RED BLOOD CELL COUNT 2.62 mill/uL (4.2-5.4); RED CELL DISTRIBUTION WIDTH 18.1 % (11.6-14.6); WHITE BLOOD COUNT 10.4 x1000/uL (4.5-11.0)
[2024-08-10 06:14] LABS: POTASSIUM 4.3 mEq/L (3.5-5.1)
[2024-08-10 06:15] LABS: CALCIUM 8.2 mg/dL (8.7-10.4)
[2024-08-10 06:20] LABS: CREATININE 1.6 mg/dL (0.6-1.0)
[2024-08-10 08:14] VITALS: BP 138/50; PULSE 72; RESP 20; TEMP 36.5; O2SAT 100
[2024-08-10 12:01] VITALS: BP 150/67; PULSE 77; RESP 19; TEMP 36.5; O2SAT 98
[2024-08-10] MEDS ORDERED: REGADENOSON 0.4 MG/5 ML IV NR (14:45)
[2024-08-10] MEDS: LOSARTAN 25 MG TABLET PO SCH (15:16)
[2024-08-10] MEDS: FUROSEMIDE 40MG/4ML VIAL IVP NR (15:37)
[2024-08-10 15:53] VITALS: BP 138/63; PULSE 76; RESP 18; TEMP 36.4; O2SAT 100
[2024-08-10 20:00] VITALS: BP 111/63; PULSE 77; RESP 18; TEMP 36.2; O2SAT 97
[2024-08-10] MEDS: CARVEDILOL 3.125 MG TABLET PO SCH (21:04)
[2024-08-11] VITALS: BP 109/53; PULSE 77; RESP 19; TEMP 36.3; O2SAT 98
[2024-08-11 04:00] VITALS: BP 128/56; PULSE 69; RESP 18; TEMP 36.3; O2SAT 98
[2024-08-11 07:28] LABS: BASOPHILS % 1.1 % (0.0-2.0); EOSINOPHILS % 2.1 % (0.0-5.0); HEMATOCRIT. 22.4 % (36.0-48.0); HEMOGLOBIN. 7.3 g/dL (12.0-16.0); LYMPHOCYTES % 19.1 % (20.0-50.0); MEAN CORPUSCULAR HEMOGLOBIN 28.8 pg (28.0-32.0); MEAN CORPUSCULAR HGB CONC 32.6 g/dL (31.0-37.0); MEAN CORPUSCULAR VOLUME 88.1 fL (81.0-99.0); MEAN PLATELET VOLUME 9.1 fl (7.4-10.4); MONOCYTES % 5.2 % (2.0-8.0); NEUTROPHILS % 72.5 % (40.0-76.0); PLATELET 339 x1000/uL (130-400); RED BLOOD CELL COUNT 2.54 mill/uL (4.2-5.4); RED CELL DISTRIBUTION WIDTH 17.6 % (11.6-14.6)
[2024-08-11 08:00] VITALS: BP 138/58; PULSE 70; RESP 16; TEMP 36.7; O2SAT 97
[2024-08-11 08:06] LABS: CHLORIDE 106 mEq/L (98-107); POTASSIUM 4.5 mEq/L (3.5-5.1); SODIUM 142 mEq/L (136-145)
[2024-08-11 08:08] LABS: CARBON DIOXIDE 27 mEq/L (21-32)
[2024-08-11 08:09] LABS: CALCIUM 8.4 mg/dL (8.7-10.4)
[2024-08-11 08:13] LABS: UREA NITROGEN BLOOD 20 mg/dL (9-23)
[2024-08-11 08:14] LABS: CREATININE 1.7 mg/dL (0.6-1.0); GLUCOSE 171 mg/dL (70-105)
[2024-08-11 08:15] LABS: ALANINE AMINOTRANSFERASE 9 IU/L (10-49); ALBUMIN 3.3 g/dL (3.2-4.8)
[2024-08-11 08:16] LABS: ASPARTATE AMINOTRANSFERASE 16 IU/L (<34); BILIRUBIN DIRECT 0.1 mg/dL (<=3.0); PHOSPHORUS 3.7 mg/dL (2.5-4.9)
[2024-08-11 08:18] LABS: BILIRUBIN TOTAL 0.3 mg/dL (0.1-1.0)
[2024-08-11] MEDS ORDERED: LOSARTAN 25 MG TABLET PO SCH (09:00)
[2024-08-11] MEDS: FUROSEMIDE 40MG/4ML VIAL IVP NR (09:21)
[2024-08-11] MEDS: EMPAGLIFLOZIN 10MG TABLET PO SCH (09:30)
[2024-08-11 12:00] VITALS: BP 131/55; PULSE 78; RESP 18; TEMP 36.2; O2SAT 98
[2024-08-11 16:00] VITALS: BP 127/58; PULSE 82; RESP 20; TEMP 36.7; O2SAT 96
[2024-08-11 20:00] VITALS: BP 128/53; PULSE 76; RESP 18; TEMP 36.3; O2SAT 97
[2024-08-12] VITALS: BP 126/58; PULSE 85; RESP 18; TEMP 36.6; O2SAT 96
[2024-08-12 04:00] VITALS: BP 132/63; PULSE 71; RESP 18; TEMP 36.4; O2SAT 98
[2024-08-12 07:19] LABS: CARBON DIOXIDE 25 mEq/L (21-32); CHLORIDE 106 mEq/L (98-107); POTASSIUM 4.2 mEq/L (3.5-5.1); SODIUM 143 mEq/L (136-145)
[2024-08-12 07:20] LABS: CALCIUM 8.6 mg/dL (8.7-10.4)
[2024-08-12 07:24] LABS: CREATININE 1.6 mg/dL (0.6-1.0)
[2024-08-12 07:25] LABS: GLUCOSE 144 mg/dL (70-105); UREA NITROGEN BLOOD 18 mg/dL (9-23)
[2024-08-12 07:27] LABS: PHOSPHORUS 3.7 mg/dL (2.5-4.9)
[2024-08-12 07:37] LABS: BASOPHILS % 2.1 % (0.0-2.0); EOSINOPHILS % 2.2 % (0.0-5.0); HEMATOCRIT. 24.1 % (36.0-48.0); HEMOGLOBIN. 7.9 g/dL (12.0-16.0); LYMPHOCYTES % 24.8 % (20.0-50.0); MEAN CORPUSCULAR HEMOGLOBIN 28.6 pg (28.0-32.0); MEAN CORPUSCULAR HGB CONC 32.6 g/dL (31.0-37.0); MEAN CORPUSCULAR VOLUME 87.8 fL (81.0-99.0); MEAN PLATELET VOLUME 9.3 fl (7.4-10.4); MONOCYTES % 5.5 % (2.0-8.0); NEUTROPHILS % 65.4 % (40.0-76.0); PLATELET 364 x1000/uL (130-400); RED BLOOD CELL COUNT 2.75 mill/uL (4.2-5.4); RED CELL DISTRIBUTION WIDTH 17.7 % (11.6-14.6); WHITE BLOOD COUNT 6.7 x1000/uL (4.5-11.0)
[2024-08-12 08:00] VITALS: BP 143/66; PULSE 66; RESP 18; TEMP 36.3; O2SAT 97
[2024-08-12 12:00] VITALS: BP 97/61; PULSE 78; RESP 16; TEMP 36.9; O2SAT 95
[2024-08-12 16:00] VITALS: BP 139/62; PULSE 68; RESP 18; TEMP 36.5; O2SAT 97
[2024-08-12 20:00] VITALS: BP 130/68; PULSE 70; RESP 20; TEMP 36.5; O2SAT 97
[2024-08-13] VITALS (7 sets, daily range): BP systolic 119–143; BP diastolic 59–72; PULSE 64–79; RESP 17–20; TEMP 35.8–36.8; O2SAT 18–99
[2024-08-13 06:07] LABS: BASOPHILS % 1.5 % (0.0-2.0); EOSINOPHILS % 2.2 % (0.0-5.0); HEMATOCRIT. 25.6 % (36.0-48.0); HEMOGLOBIN. 8.4 g/dL (12.0-16.0); LYMPHOCYTES % 24.2 % (20.0-50.0); MEAN CORPUSCULAR HEMOGLOBIN 28.8 pg (28.0-32.0); MEAN CORPUSCULAR VOLUME 87.3 fL (81.0-99.0); MEAN PLATELET VOLUME 8.9 fl (7.4-10.4); MONOCYTES % 4.9 % (2.0-8.0); NEUTROPHILS % 67.2 % (40.0-76.0); PLATELET 408 x1000/uL (130-400); RED BLOOD CELL COUNT 2.93 mill/uL (4.2-5.4); RED CELL DISTRIBUTION WIDTH 17.4 % (11.6-14.6); WHITE BLOOD COUNT 7.2 x1000/uL (4.5-11.0)
[2024-08-13 08:36] LABS: CHLORIDE 104 mEq/L (98-107); POTASSIUM 4.3 mEq/L (3.5-5.1); SODIUM 142 mEq/L (136-145)
[2024-08-13 08:37] LABS: CARBON DIOXIDE 27 mEq/L (21-32)
[2024-08-13 08:38] LABS: CALCIUM 8.9 mg/dL (8.7-10.4)
[2024-08-13 08:42] LABS: CREATININE 1.7 mg/dL (0.6-1.0); GLUCOSE 123 mg/dL (70-105)
[2024-08-13 08:43] LABS: UREA NITROGEN BLOOD 17 mg/dL (9-23)
[2024-08-13 08:45] LABS: PHOSPHORUS 3.7 mg/dL (2.5-4.9)
[2024-08-13] MEDS ORDERED: SENNOSIDES/DOCUSATE SOD 8.6/50MG TABLET PO PRN (14:00)
[2024-08-14] VITALS: BP 134/57; PULSE 68; RESP 18; TEMP 36.5; O2SAT 92
[2024-08-14 04:00] VITALS: BP 130/60; PULSE 70; RESP 18; TEMP 36.5; O2SAT 92
[2024-08-14 08:00] VITALS: BP 146/72; PULSE 64; RESP 18; TEMP 36.2; O2SAT 99
[2024-08-14 08:14] LABS: BASOPHILS % 1.9 % (0.0-2.0); EOSINOPHILS % 2.5 % (0.0-5.0); HEMATOCRIT. 22.5 % (36.0-48.0); HEMOGLOBIN. 7.3 g/dL (12.0-16.0); LYMPHOCYTES % 29.9 % (20.0-50.0); MEAN CORPUSCULAR HEMOGLOBIN 28.5 pg (28.0-32.0); MEAN CORPUSCULAR HGB CONC 32.6 g/dL (31.0-37.0); MEAN CORPUSCULAR VOLUME 87.6 fL (81.0-99.0); MEAN PLATELET VOLUME 8.6 fl (7.4-10.4); MONOCYTES % 6.9 % (2.0-8.0); NEUTROPHILS % 58.8 % (40.0-76.0); PLATELET 363 x1000/uL (130-400); RED BLOOD CELL COUNT 2.57 mill/uL (4.2-5.4); RED CELL DISTRIBUTION WIDTH 17.5 % (11.6-14.6); WHITE BLOOD COUNT 5.9 x1000/uL (4.5-11.0)
[2024-08-14 08:24] LABS: CARBON DIOXIDE 29 mEq/L (21-32); CHLORIDE 104 mEq/L (98-107); SODIUM 142 mEq/L (136-145)
[2024-08-14 08:25] LABS: CALCIUM 8.5 mg/dL (8.7-10.4)
[2024-08-14 08:29] LABS: CREATININE 1.5 mg/dL (0.6-1.0)
[2024-08-14 08:30] LABS: GLUCOSE 149 mg/dL (70-105); UREA NITROGEN BLOOD 16 mg/dL (9-23)
[2024-08-14 08:32] LABS: PHOSPHORUS 3.6 mg/dL (2.5-4.9)
[2024-08-14 12:00] VITALS: BP 140/64; PULSE 76; RESP 18; TEMP 36.3; O2SAT 97
[2024-08-14] MEDS: TRAMADOL 50MG TABLET PO PRN (12:36)
[2024-08-14 16:00] VITALS: BP 134/56; PULSE 76; RESP 18; TEMP 36.3; O2SAT 94
[2024-08-14 20:00] VITALS: BP 144/68; PULSE 64; RESP 18; TEMP 36.3; O2SAT 98
[2024-08-15] VITALS: BP 138/57; PULSE 64; RESP 18; TEMP 36.2; O2SAT 99
[2024-08-15 04:00] VITALS: BP 140/140; PULSE 65; RESP 18; TEMP 36.1; O2SAT 98
[2024-08-15 06:35] LABS: EOSINOPHILS % 2.8 % (0.0-5.0); HEMATOCRIT. 24.9 % (36.0-48.0); HEMOGLOBIN. 8.1 g/dL (12.0-16.0); LYMPHOCYTES % 28.4 % (20.0-50.0); MEAN CORPUSCULAR HEMOGLOBIN 28.5 pg (28.0-32.0); MEAN CORPUSCULAR HGB CONC 32.5 g/dL (31.0-37.0); MEAN CORPUSCULAR VOLUME 87.6 fL (81.0-99.0); MEAN PLATELET VOLUME 8.5 fl (7.4-10.4); MONOCYTES % 6.8 % (2.0-8.0); PLATELET 369 x1000/uL (130-400); RED BLOOD CELL COUNT 2.84 mill/uL (4.2-5.4); RED CELL DISTRIBUTION WIDTH 18.1 % (11.6-14.6)
[2024-08-15 06:53] LABS: CALCIUM 8.8 mg/dL (8.7-10.4); CARBON DIOXIDE 27 mEq/L (21-32); CHLORIDE 104 mEq/L (98-107); POTASSIUM 4.3 mEq/L (3.5-5.1); SODIUM 140 mEq/L (136-145)
[2024-08-15 06:59] LABS: CREATININE 1.7 mg/dL (0.6-1.0); GLUCOSE 136 mg/dL (70-105); UREA NITROGEN BLOOD 17 mg/dL (9-23)
[2024-08-15 07:01] LABS: PHOSPHORUS 3.8 mg/dL (2.5-4.9)
[2024-08-15 08:00] VITALS: BP 151/70; PULSE 71; RESP 18; TEMP 36.7; O2SAT 98
[2024-08-15] MEDS: EMPAGLIFLOZIN 25MG TABLET PO SCH (09:16)
[2024-08-15 12:00] VITALS: BP 143/68; PULSE 66; RESP 18; TEMP 36.6; O2SAT 99
[2024-08-15 16:00] VITALS: BP 140/47; PULSE 68; RESP 17; TEMP 36.7; O2SAT 99
[2024-08-15 20:00] VITALS: BP 129/56; PULSE 63; TEMP 36.6
[2024-08-16] VITALS: BP 116/59; PULSE 66; RESP 18; TEMP 36.4; O2SAT 96
[2024-08-16 04:00] VITALS: BP 152/69; PULSE 68; RESP 20; TEMP 36; O2SAT 98
[2024-08-16 05:43] LABS: BASOPHILS % 2.2 % (0.0-2.0); EOSINOPHILS % 2.6 % (0.0-5.0); HEMATOCRIT. 24.8 % (36.0-48.0); HEMOGLOBIN. 8.1 g/dL (12.0-16.0); MEAN CORPUSCULAR HEMOGLOBIN 28.7 pg (28.0-32.0); MEAN CORPUSCULAR HGB CONC 32.8 g/dL (31.0-37.0); MEAN CORPUSCULAR VOLUME 87.5 fL (81.0-99.0); MEAN PLATELET VOLUME 8.6 fl (7.4-10.4); MONOCYTES % 7.5 % (2.0-8.0); NEUTROPHILS % 58.7 % (40.0-76.0); PLATELET 346 x1000/uL (130-400); RED BLOOD CELL COUNT 2.83 mill/uL (4.2-5.4); RED CELL DISTRIBUTION WIDTH 17.4 % (11.6-14.6); WHITE BLOOD COUNT 6.4 x1000/uL (4.5-11.0)
[2024-08-16 06:04] LABS: CARBON DIOXIDE 28 mEq/L (21-32); CHLORIDE 101 mEq/L (98-107); POTASSIUM 4.3 mEq/L (3.5-5.1); SODIUM 140 mEq/L (136-145)
[2024-08-16 06:07] LABS: CREATININE 1.8 mg/dL (0.6-1.0)
[2024-08-16 06:10] LABS: GLUCOSE 151 mg/dL (70-105); UREA NITROGEN BLOOD 21 mg/dL (9-23)
[2024-08-16 06:12] LABS: PHOSPHORUS 3.9 mg/dL (2.5-4.9)
[2024-08-16 08:00] VITALS: BP 130/48; PULSE 66; RESP 17; TEMP 36.3; O2SAT 98
[2024-08-16] MEDS: MAGNESIUM OXIDE 400MG TABLET PO SCH (10:16)
[2024-08-16 12:00] VITALS: BP 154/76; RESP 19; TEMP 36.4; O2SAT 97
[2024-08-16 16:00] VITALS: BP 144/66; PULSE 64; RESP 18; TEMP 36.3; O2SAT 98
[2024-08-16 20:00] VITALS: BP 144/54; PULSE 73; RESP 16; TEMP 36.9; O2SAT 100
[2024-08-16] MEDS ORDERED: DEXTROSE 50% WATER 50ML SYRINGE IV PRN (22:15)
[2024-08-16] MEDS ORDERED: INSULIN GLARGINE 100 UNITS/ML SUBCUT NR (22:16)
[2024-08-16] MEDS: INSULIN GLARGINE 100 UNITS/ML SUBCUT ONE (22:47)
[2024-08-17] VITALS: BP 116/40; PULSE 67; RESP 16; TEMP 36.7; O2SAT 97
[2024-08-17 04:00] VITALS: BP 125/51; PULSE 62; RESP 16; TEMP 37.1; O2SAT 99
[2024-08-17 06:48] LABS: BASOPHILS % 1.9 % (0.0-2.0); EOSINOPHILS % 2.5 % (0.0-5.0); HEMATOCRIT. 24.8 % (36.0-48.0); HEMOGLOBIN. 8.2 g/dL (12.0-16.0); LYMPHOCYTES % 30.2 % (20.0-50.0); MEAN CORPUSCULAR HEMOGLOBIN 28.7 pg (28.0-32.0); MEAN CORPUSCULAR VOLUME 86.8 fL (81.0-99.0); MEAN PLATELET VOLUME 8.7 fl (7.4-10.4); MONOCYTES % 8.4 % (2.0-8.0); PLATELET 344 x1000/uL (130-400); RED BLOOD CELL COUNT 2.86 mill/uL (4.2-5.4); RED CELL DISTRIBUTION WIDTH 17.2 % (11.6-14.6); WHITE BLOOD COUNT 6.3 x1000/uL (4.5-11.0)
[2024-08-17] MEDS: BLOOD SUGAR DIAGNOSTIC STRIP TEST SCH (06:50)
[2024-08-17 06:54] LABS: CARBON DIOXIDE 27 mEq/L (21-32); CHLORIDE 99 mEq/L (98-107); POTASSIUM 4.1 mEq/L (3.5-5.1); SODIUM 138 mEq/L (136-145)
[2024-08-17 06:55] LABS: CALCIUM 8.9 mg/dL (8.7-10.4)
[2024-08-17 06:59] LABS: CREATININE 1.8 mg/dL (0.6-1.0)
[2024-08-17 07:00] LABS: GLUCOSE 196 mg/dL (70-105); UREA NITROGEN BLOOD 19 mg/dL (9-23)
[2024-08-17 07:02] LABS: PHOSPHORUS 4.4 mg/dL (2.5-4.9)
[2024-08-17 08:00] VITALS: BP 129/61; PULSE 61; RESP 18; TEMP 36.7; O2SAT 100
[2024-08-17] MEDS: INSULIN LISPRO 100 UNITS/ML SUBCUT SCH (09:30)
[2024-08-17 12:00] VITALS: BP 132/56; PULSE 66; RESP 20; TEMP 36.7; O2SAT 99
[2024-08-17] MEDS ORDERED: NALOXONE HCL 0.4MG/ML VIAL IV PRN (16:15)
[2024-08-17 17:25] VITALS: BP 146/50; PULSE 70; RESP 18; TEMP 36.6; O2SAT 100
[2024-08-17 20:00] VITALS: BP 141/63; PULSE 67; RESP 18; TEMP 36.5; O2SAT 99
[2024-08-18] VITALS: BP 152/59; PULSE 65; RESP 18; TEMP 36.5; O2SAT 96
[2024-08-18 04:00] VITALS: BP 138/54; PULSE 67; RESP 18; TEMP 36.5; O2SAT 97
[2024-08-18 08:00] VITALS: BP 128/60; PULSE 66; RESP 20; TEMP 36.5; O2SAT 95
[2024-08-18 08:35] LABS: EOSINOPHILS % 2.9 % (0.0-5.0); HEMATOCRIT. 28.2 % (36.0-48.0); HEMOGLOBIN. 9.5 g/dL (12.0-16.0); LYMPHOCYTES % 29.5 % (20.0-50.0); MEAN CORPUSCULAR HEMOGLOBIN 29.2 pg (28.0-32.0); MEAN CORPUSCULAR HGB CONC 33.6 g/dL (31.0-37.0); MEAN CORPUSCULAR VOLUME 86.7 fL (81.0-99.0); MEAN PLATELET VOLUME 8.4 fl (7.4-10.4); MONOCYTES % 7.1 % (2.0-8.0); NEUTROPHILS % 58.5 % (40.0-76.0); PLATELET 405 x1000/uL (130-400); RED BLOOD CELL COUNT 3.25 mill/uL (4.2-5.4); RED CELL DISTRIBUTION WIDTH 17.5 % (11.6-14.6); WHITE BLOOD COUNT 7.2 x1000/uL (4.5-11.0)
[2024-08-18 08:40] LABS: CHLORIDE 100 mEq/L (98-107); POTASSIUM 4.1 mEq/L (3.5-5.1); SODIUM 137 mEq/L (136-145)
[2024-08-18 08:41] LABS: CALCIUM 9.2 mg/dL (8.7-10.4); CARBON DIOXIDE 29 mEq/L (21-32)
[2024-08-18 08:46] LABS: CREATININE 2.1 mg/dL (0.6-1.0); GLUCOSE 162 mg/dL (70-105); UREA NITROGEN BLOOD 19 mg/dL (9-23)
[2024-08-18 08:48] LABS: PHOSPHORUS 3.5 mg/dL (2.5-4.9)
[2024-08-18] MEDS: FAMOTIDINE 20MG TABLET PO SCH (09:39)
[2024-08-18 12:00] VITALS: BP 129/73; PULSE 74; RESP 20; TEMP 36.5; O2SAT 94
[2024-08-18 16:00] VITALS: BP 124/49; PULSE 67; RESP 20; TEMP 36.4; O2SAT 95
[2024-08-18 20:00] VITALS: BP 150/64; PULSE 72; RESP 16; TEMP 36.6; O2SAT 100
[2024-08-19] VITALS: BP 142/63; PULSE 69; RESP 18; TEMP 36.7; O2SAT 99
[2024-08-19 04:00] VITALS: BP 142/63; PULSE 65; RESP 19; TEMP 36.6; O2SAT 97
[2024-08-19 08:00] VITALS: BP 169/46; PULSE 64; RESP 20; TEMP 35.7; O2SAT 97
[2024-08-19 09:20] LABS: BASOPHILS % 2.1 % (0.0-2.0); EOSINOPHILS % 3.3 % (0.0-5.0); HEMATOCRIT. 29.9 % (36.0-48.0); HEMOGLOBIN. 9.7 g/dL (12.0-16.0); MEAN CORPUSCULAR HEMOGLOBIN 28.3 pg (28.0-32.0); MEAN CORPUSCULAR HGB CONC 32.4 g/dL (31.0-37.0); MEAN CORPUSCULAR VOLUME 87.3 fL (81.0-99.0); MEAN PLATELET VOLUME 8.9 fl (7.4-10.4); MONOCYTES % 5.5 % (2.0-8.0); NEUTROPHILS % 62.1 % (40.0-76.0); PLATELET 394 x1000/uL (130-400); RED BLOOD CELL COUNT 3.42 mill/uL (4.2-5.4); RED CELL DISTRIBUTION WIDTH 17.8 % (11.6-14.6); WHITE BLOOD COUNT 7.5 x1000/uL (4.5-11.0)
[2024-08-19 09:26] LABS: CARBON DIOXIDE 29 mEq/L (21-32); CHLORIDE 99 mEq/L (98-107); POTASSIUM 4.3 mEq/L (3.5-5.1); SODIUM 137 mEq/L (136-145)
[2024-08-19 09:27] LABS: CALCIUM 9.5 mg/dL (8.7-10.4)
[2024-08-19 09:32] LABS: CREATININE 1.9 mg/dL (0.6-1.0); GLUCOSE 178 mg/dL (70-105); UREA NITROGEN BLOOD 26 mg/dL (9-23)
[2024-08-19 09:34] LABS: PHOSPHORUS 3.5 mg/dL (2.5-4.9)
[2024-08-19 12:00] VITALS: BP 109/49; PULSE 66; RESP 20; TEMP 35.9; O2SAT 97
[2024-08-19 13:41] VITALS: BP 109/49; PULSE 66; TEMP 96.6; O2SAT 97
[2024-08-19] MEDS: LINAGLIPTIN 5MG TABLET PO SCH (14:53)
== END 2024-08-19 15:26 | DRG 720 ==
LOC: ER 15:30 → EDBEDREQ 16:42 → MICUNO 19:24 → EDBEDREQSVC 19:37 → MICUNO 07-30 15:21 → 7WST 08-06 18:00 → 7EST 08-13 06:35
PROVIDERS: ADMIT Hospitalist; ATTEND Hospitalist
PROC: 03HY32Z Insertion of Monitoring Device into Upper Artery, Percutaneous Approach (ICD-10-PCS; principal; 2024-07-30)
PROC: 5A1955Z Respiratory Ventilation, Greater than 96 Consecutive Hours (ICD-10-PCS; 2024-07-30)
PROC: 05HY33Z Insertion of Infusion Device into Upper Vein, Percutaneous Approach (ICD-10-PCS; 2024-07-30)
PROC: B54MZZA Ultrasonography of Right Upper Extremity Veins, Guidance (ICD-10-PCS; 2024-07-30)
PROC: 05HM33Z Insertion of Infusion Device into Right Internal Jugular Vein, Percutaneous Approach (ICD-10-PCS; 2024-07-30)
PROC: B543ZZA Ultrasonography of Right Jugular Veins, Guidance (ICD-10-PCS; 2024-07-30)
PROC: 0BH17EZ Insertion of Endotracheal Airway into Trachea, Via Natural or Artificial Opening (ICD-10-PCS; 2024-07-30)
PROC: 5A1D70Z Performance of Urinary Filtration, Intermittent, Less than 6 Hours Per Day (ICD-10-PCS; 2024-07-30)
PROC: 5A1D70Z Performance of Urinary Filtration, Intermittent, Less than 6 Hours Per Day (ICD-10-PCS; 2024-07-31)
DX: A41.51 Sepsis due to Escherichia coli [E. coli] (principal); N17.0 Acute kidney failure with tubular necrosis; J96.01 Acute respiratory failure with hypoxia; R65.21 Severe sepsis with septic shock; J18.9 Pneumonia, unspecified organism; E11.10 Type 2 diabetes mellitus with ketoacidosis without coma; G92.8 Other toxic encephalopathy; I50.23 Acute on chronic systolic (congestive) heart failure; D69.6 Thrombocytopenia, unspecified; E83.39 Other disorders of phosphorus metabolism; E87.1 Hypo-osmolality and hyponatremia; D50.9 Iron deficiency anemia, unspecified; E11.22 Type 2 diabetes mellitus with diabetic chronic kidney disease; E66.9 Obesity, unspecified; K76.0 Fatty (change of) liver, not elsewhere classified; K80.20 Calculus of gallbladder without cholecystitis without obstruction; N18.30 Chronic kidney disease, stage 3 unspecified; N28.1 Cyst of kidney, acquired; E03.9 Hypothyroidism, unspecified; K42.9 Umbilical hernia without obstruction or gangrene; E87.5 Hyperkalemia; E83.42 Hypomagnesemia; D25.9 Leiomyoma of uterus, unspecified; I11.0 Hypertensive heart disease with heart failure; I50.9 Heart failure, unspecified; S70.322A Blister (nonthermal), left thigh, initial encounter; S70.321A Blister (nonthermal), right thigh, initial encounter; D18.03 Hemangioma of intra-abdominal structures; E78.1 Pure hyperglyceridemia; G45.9 Transient cerebral ischemic attack, unspecified; H81.10 Benign paroxysmal vertigo, unspecified ear; I13.0 Hypertensive heart and chronic kidney disease with heart failure and stage 1 through stage 4 chronic kidney disease, or unspecified chronic kidney disease; E88.819 Insulin resistance, unspecified; I42.9 Cardiomyopathy, unspecified; N31.9 Neuromuscular dysfunction of bladder, unspecified; S40.821A Blister (nonthermal) of right upper arm, initial encounter; X58.XXXA Exposure to other specified factors, initial encounter; I50.32 Chronic diastolic (congestive) heart failure; N13.6 Pyonephrosis; I69.354 Hemiplegia and hemiparesis following cerebral infarction affecting left non-dominant side; Z59.00 Homelessness unspecified; Z79.4 Long term (current) use of insulin; Z82.49 Family history of ischemic heart disease and other diseases of the circulatory system; Z83.3 Family history of diabetes mellitus; Z91.199 Patient's noncompliance with other medical treatment and regimen due to unspecified reason; Z91.81 History of falling; Z95.0 Presence of cardiac pacemaker; Y93.89 Activity, other specified; Y92.89 Other specified places as the place of occurrence of the external cause; Y99.8 Other external cause status; Z68.31 Body mass index [BMI] 31.0-31.9, adult
CPT/HCPCS: 36415; 36556; 36573; 36600; 71045; 73060; 73090; 74176; 76604; 76700; 76937; 78452; 80048; 80051; 80053; 80061; 80076; 80202; 81003; 82010; 82040; 82150; 82375; 82533; 82550; 82805; 82962; 83036; 83540; 83550; 83605; 83735; 83880; 83930; 83935; 84100; 84145; 84300; 84439; 84443; 84478; 84484; 85025; 85027; 86705; 86709; 87070; 87077; 87186; 87340; 87804; 90935; 93005; 93017; 93306; 93880; 93970; 93971; 94002; 94003; 94070; 94640; 94664; 96361; 96365; 96367; 96368; 96372; 96375; 97110; 97116; 97162; 97166; 97530; 97535; 98960; 99291; A4606; A9500; C1725; C1752; J0456; J0696; J1200; J1650; J1720; J1815; J1940; J2003; J2250; J2270; J2371; J2405; J2543; J2704; J2785; J3010; J3370; J3475; J3480; J3490; J7030; J7042; J7050; J7060; J8597; A5200; J0131